=== PATIENT | male | born 1990 | race Asian ===

== ENCOUNTER 2024-04-18 08:32 | Emergency (ER) | payer MEDICAID ==
[~2024-04-18] VITALS: Ht 154.9 cm; Wt 90.9 kg
[2024-04-18 08:41] VITALS: TEMP 98.1
[2024-04-18 11:18] LABS: STREP A NEGATIVE
[2024-04-18 12:10] VITALS: BP 130/89; PULSE 86
== END 2024-04-18 12:12 | disposition home or self-care (01) ==
LOC: COL.ER 08:32
PROVIDERS: Nurse Practitioner
DX: J02.9 Acute pharyngitis, unspecified (principal)

== ENCOUNTER 2024-05-29 08:59 | Emergency (ER) | payer MEDICAID ==
[~2024-05-29] VITALS: Ht 182.9 cm; Wt 88.6 kg
[2024-05-29 09:12] VITALS: BP 135/84
[2024-05-29] MEDS ORDERED: dexAMETHasone 10 MG/ML VIAL PO ONE (11:00)
[2024-05-29] MEDS ORDERED: Albuterol 90 MCG/PUFF 8 GM MDI IH ONE (11:00)
[2024-05-29 11:40] VITALS: PULSE 90; TEMP 98
== END 2024-05-29 12:00 | disposition home or self-care (01) ==
LOC: COL.ER 08:59
DX: J06.9 Acute upper respiratory infection, unspecified (principal); Z20.822 Contact with and (suspected) exposure to COVID-19
CPT/HCPCS: J1100